=== PATIENT | male | born 1985 | race Caucasian/White ===

== ENCOUNTER 2018-08-29 15:53 | Outpatient (RCR) | payer OTHER, SELFPAY ==
--- NOTE | 2018-08-29 16:44 | HP.PTEVAL_ITS ---
Patient's Visit Information STEPHANIE CURRIE is a 33 year old M referred to Physical Therapy by Yamil Stephenson DO with a diagnosis of Back Pain. Date of Evaluation: 08/29/18 Physical Therapist: Thuy Palomo DPT - Visit Plan Frequency: 1x/Week Duration: 1 Week - Subjective Findings: Patient reports having back pain forever- associated with sports and wear and tear. Has not played for 5-6 years but still having back. Has PT, chiro, pain meds, pain management- declined injections and the have recommended a TENS unit. Has not used a TENS unit. Worst: 9/10- Eases: foam rolling and laying flat Constant pain is a 7/10. Agg: bad posture and being tall- nothing is built for him. Pain is located in the low and mid back- does not radiate down his lower extremeties. Feels like spiderwebs coming around. Feels very concentrated. X-rays/MRI-see chart- last year. Sleep: severe anxiety so he does not sleep well- no more than 4 hours at a time. 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 PMhx/Meds: no changes- see scanned in chart- not taking Trazadone anymore - Objective Posture: FH, RS, increased kyphosis. Gait: no deviation noted- good arm swing and trunk rotation. Palpation: tender along paraspinals. Sensation: WNL. ROM: Lumbar: flexion: hands to mid carrion, extn: neutral, SB: WFL, Rot: WNL Hip/Ankle/Knee: WNL. Strength: Ankle/knee: 5/5, Hip: 4/5, Core: fair minus - Goals Goal 1:: Home TENS Unit education and direction of use - Rehabilitation Potential Physical Therapy Diagnosis: Patient presents with hypomobility- he has increased pain with ADL's. Rehabilitation Potential: Good - Anticipated Interventions Thank you for the opportunity to evaluate your patient. For Medicare and Medicare HMO plans, please review the plan of care and approve it. It will need to be FAXED BACK to us at [phone] for Medicare purposes. For Medicare only, by signing this I certify the plan of care. Please let me know if there are questions or concerns regarding this plan of care. Physician Signature: Date:
--- NOTE | 2018-12-31 14:51 | HP.PT.NRP ---
HP - Discharge Summary (1) - Patient Information STEPHANIE CURRIE was seen in my office for initial evaluation on 08/29/18. The following Plan of Care was established for this patient: Initial Frequency: 1x/Week Initial Duration: 1 Week This patient was last seen in our office . Pertinent comments regarding their Physical therapy will appear below: Patient has not attended PT in over 6 weeks and is appropriate for d/c and to return to MD for further evaluation as needed. At this point I will be discontinuing this patient from physical therapy. I would be happy to see this patient again in the future if found appropriate by the physician. Thank you! RENETTA GonzalesT
== END 2018-08-29 19:00 | disposition home or self-care (01) ==
LOC: PT 15:53
PROVIDERS: Family Provider Family Medicine; PCP Family Medicine; Visit Provider Family Medicine
DX: M51.26 Other intervertebral disc displacement, lumbar region (principal)
CPT/HCPCS: 97161

== ENCOUNTER → 2018-08-30 | Outpatient (CLI) | payer OTHER, SELFPAY ==
--- NOTE | 2018-08-30 06:49 | MRI_ITS ---
STUDY: MRI LEFT KNEE REASON FOR EXAM: Male, 33 years old. Pain and swelling TECHNIQUE: Standardized fat and water weighted pulse sequences were obtained in all 3 orthogonal planes. COMPARISON: None. FINDINGS: Normal medial meniscus. Normal hyaline cartilage of the medial femorotibial compartment. Normal medial femoral condyle and tibial plateau. Normal medial collateral ligamentous complex (MCL). Normal distal semimembranosus, gracilis and semitendinosus tendons. Normal lateral meniscus. There is full thickness cartilage loss of the posterior, lateral femoral articular cartilage surface. Normal lateral femoral condyle and tibial plateau. Normal proximal tibiofibular articulation. Normal lateral collateral (fibular) ligament. Normal popliteus tendon. Normal biceps femoris tendon. Normal anterior cruciate ligament (ACL). Normal posterior cruciate ligament (PCL). Normal congruent patellofemoral articulation. Normal hyaline cartilage of the patellofemoral compartment. Normal medial and lateral patellar retinaculum. Normal quadriceps tendon. Normal patellar tendon. Normal Hoffa's fat pad. There is trace joint effusion. The soft tissues are unremarkable. The otherwise visualized osseous structures are unremarkable. MRI/Lower Ext Joint Only (Routine) IMPRESSION: Full thickness cartilage loss of the posterior, lateral femoral articular cartilage surface. Trace joint effusion. No meniscal tear or bony abnormality. Electronically Signed: Denise Rose, at 10:53 EDT Tel , Service support ,
== END | disposition home or self-care (01) ==
LOC: MRI 06:41
PROVIDERS: Family Provider Family Medicine; PCP Family Medicine; Referring Provider Family Medicine; Visit Provider Family Medicine
DX: M25.562 Pain in left knee (principal)
CPT/HCPCS: 73721

== ENCOUNTER → 2019-07-01 19:57 | Outpatient (CLI) | payer OTHER, SELFPAY ==
[2019-05-29 08:07] VITALS: BMI 26.8
== END ==
PROVIDERS: PCP Family Medicine; Referring Provider Internal Medicine Critical Care Medicine; Visit Provider Internal Medicine Critical Care Medicine
DX: G47.00 Insomnia, unspecified (principal); G47.10 Hypersomnia, unspecified; R06.83 Snoring
CPT/HCPCS: 95810